=== PATIENT | female | born 1950 | race Caucasian/White ===

== ENCOUNTER 2023-12-17 22:13 | Inpatient (IN) | payer MEDICARE ==
[~2023-12-17] VITALS: Ht 167.6 cm; Wt 74.8 kg
[2023-12-17] MEDS ORDERED: CEPH500C2 PO (23:05)
[2023-12-18 00:04] LABS: BASOPHILS # (AUTO) 0.1 K/UL (0.0-0.2); BASOPHILS % (AUTO) 0.9 % (0.0-2.0); EOSINOPHILS # (AUTO) 0.2 K/uL (0.0-0.7); EOSINOPHILS % (AUTO) 2.3 % (0.0-7.0); HEMATOCRIT 35.8 % (31.2-41.9); HEMOGLOBIN 11.5 g/dL (10.9-14.3); LYMPHOCYTES # (AUTO) 1.7 K/uL (0.8-4.8); LYMPHOCYTES % (AUTO) 20.4 % (20.5-51.5); MEAN CORPUSCULAR HEMOGLOBIN 28.7 uug (24.7-32.8); MEAN CORPUSCULAR HGB CONC 32 g/dL (32.3-35.6); MEAN CORPUSCULAR VOLUME 89.1 fL (75.5-95.3); MONOCYTES # (AUTO) 0.9 K/uL (0.1-1.30); MONOCYTES % (AUTO) 10.7 % (0.0-11.0); NEUTROPHILS # (AUTO) 5.4 K/uL (1.8-8.9); NEUTROPHILS % (AUTO) 65.7 % (38.5-71.5); PLATELET COUNT (AUTO) 258 K/uL (179-408); RED BLOOD CELL COUNT(AUTO) 4.02 MIL/uL (3.63-4.92); RED CELL DISTRIBUTION WIDTH 13.4 % (12.3-17.7); WHITE BLOOD COUNT (AUTO) 8.3 K/uL (3.8-11.8)
[2023-12-18 00:05] LABS: DIFFERENTIAL COMMENT 1
[2023-12-18 00:18] LABS: CALCIUM 8.8 mg/dL (8.5-10.1); CARBON DIOXIDE 28 mmol/L (21-32); CHLORIDE 102 mmol/L (98-107); GLUCOSE 113 mg/dL (74-106); POTASSIUM 4.3 mmol/L (3.5-5.1); SODIUM SERUM 136 mmol/L (136-145); UREA NITROGEN, BLOOD 16 mg/dL (7-18)
[2023-12-18 00:31] LABS: ETHANOL < 3 MG/DL (0-10); THYROID STIMULATING HORMONE 3.178 mIU/mL (0.358-3.740)
[2023-12-18 00:32] LABS: ALANINE AMINOTRANSFERASE 21 U/L (14-59); ALBUMIN 2.3 g/dL (3.4-5.0); ALKALINE PHOSPHATASE 101 U/L (50-136); ASPARTATE AMINOTRANSFERASE 17 U/L (15-37); BILIRUBIN,DIRECT 0.1 mg/dL (0.0-0.2); BILIRUBIN,TOTAL 0.3 mg/dL (0.2-1.0); TOTAL PROTEIN, SERUM 6.3 g/dL (6.4-8.2)
[2023-12-18 00:33] LABS: ACETAMINOPHEN < 10.0 ug/mL (10-30)
[2023-12-18] MEDS ORDERED: TEMAZEPAM 7.5 MG CAPSULE PO PRN (04:45)
[2023-12-18] MEDS ORDERED: CLONAZEPAM 0.5 MG TABLET PO PRN (04:45)
[2023-12-18] MEDS ORDERED: MAG HYDROX/AL HYDROX/SIMETH 30 ML LIQUID UDC PO PRN (04:45)
[2023-12-18] MEDS ORDERED: MAGNESIUM HYDROXIDE 30 ML LIQUID UDC PO PRN (04:45)
[2023-12-18 05:06] VITALS: BP 107/66; TEMP 98; O2SAT 98
[2023-12-18 08:11] VITALS: BP 114/60; TEMP 97.8; O2SAT 97
[2023-12-18] MEDS: CEphaleXIN 500 MG CAPSULE PO SCH (12:28)
[2023-12-18] MEDS: ACETAMINOPHEN 325 MG TABLET PO PRN (12:29)
[2023-12-18 15:19] VITALS: BP 98/55; TEMP 98; O2SAT 96
[2023-12-18 20:13] VITALS: BP 110/56; TEMP 98.1; O2SAT 96
[2023-12-18] MEDS: risperiDONE 0.5 MG TABLET PO SCH (21:10)
[2023-12-19 07:45] VITALS: BP 108/60; TEMP 98.5; O2SAT 99
[2023-12-19 07:50] LABS: ALANINE AMINOTRANSFERASE 17 U/L (14-59); ALBUMIN 2.1 g/dL (3.4-5.0); ALKALINE PHOSPHATASE 91 U/L (50-136); ASPARTATE AMINOTRANSFERASE 12 U/L (15-37); BILIRUBIN,TOTAL 0.3 mg/dL (0.2-1.0); CALCIUM 8.7 mg/dL (8.5-10.1); CARBON DIOXIDE 28 mmol/L (21-32); CHLORIDE 105 mmol/L (98-107); CREATININE 0.7 mg/dL (0.6-1.3); GLUCOSE 94 mg/dL (74-106); SODIUM SERUM 139 mmol/L (136-145); TOTAL PROTEIN, SERUM 5.9 g/dL (6.4-8.2); UREA NITROGEN, BLOOD 16 mg/dL (7-18)
[2023-12-19 16:49] VITALS: BP 104/51; TEMP 98.4; O2SAT 99
[2023-12-19 20:00] VITALS: BP 106/52; TEMP 97.7; O2SAT 98
[2023-12-20 07:45] VITALS: BP 117/68; TEMP 98.2; O2SAT 98
[2023-12-20 17:05] VITALS: BP 117/86; TEMP 98.1; O2SAT 98
[2023-12-20 20:08] VITALS: BP 112/76; TEMP 98.1; O2SAT 96
[2023-12-21 08:23] VITALS: BP 142/87; TEMP 97.8; O2SAT 98
[2023-12-21 16:11] VITALS: BP 95/59; TEMP 97.9; O2SAT 98
[2023-12-21 19:44] VITALS: BP 112/56; TEMP 98; O2SAT 96
[2023-12-22 08:00] VITALS: BP 115/62; TEMP 98; O2SAT 98
[2023-12-22 15:27] VITALS: BP 94/51; TEMP 98; O2SAT 98
[2023-12-22 20:01] VITALS: BP 101/56; TEMP 97.9; O2SAT 96
[2023-12-23 09:38] VITALS: BP 101/60; TEMP 98.4; O2SAT 96
[2023-12-23 15:36] VITALS: BP 106/60; TEMP 98; O2SAT 97
[2023-12-23 20:00] VITALS: BP 94/53; TEMP 98.4; O2SAT 96
[2023-12-24 08:10] VITALS: BP 121/64; TEMP 98; O2SAT 99
[2023-12-24 15:44] VITALS: BP 102/57; TEMP 98.2; O2SAT 98
[2023-12-24 20:00] VITALS: BP 94/77; TEMP 97.9; O2SAT 98
[2023-12-25 07:56] VITALS: BP 135/83; TEMP 98; O2SAT 99
[2023-12-25 14:53] VITALS: BP 98/58; TEMP 98.2; O2SAT 98
[2023-12-25 20:16] VITALS: BP 96/57; TEMP 98; O2SAT 98
[2023-12-26 07:56] VITALS: BP 94/44; TEMP 98.3; O2SAT 98
[2023-12-26 16:20] VITALS: BP 92/51; TEMP 98; O2SAT 97
[2023-12-26 20:48] VITALS: BP 92/54; TEMP 98.2; O2SAT 100
[2023-12-27 07:59] VITALS: BP 115/64; TEMP 98; O2SAT 98
[2023-12-27 16:16] VITALS: BP 103/60; TEMP 98.1; O2SAT 98
[2023-12-27 20:06] VITALS: BP 118/56; TEMP 98.4; O2SAT 99
[2023-12-28 08:03] VITALS: BP 120/77; TEMP 98.1; O2SAT 98
[2023-12-28 16:24] VITALS: BP 118/70; TEMP 98; O2SAT 98
[2023-12-28 19:49] VITALS: BP 122/74; TEMP 98.1; O2SAT 96
[2023-12-28] MEDS: risperiDONE 0.5 MG TABLET PO SCH (20:37)
[2023-12-29 08:09] VITALS: BP 131/63; TEMP 98; O2SAT 100
[2023-12-29 16:01] VITALS: BP 120/61; TEMP 98; O2SAT 98
[2023-12-29 19:46] VITALS: BP 136/64; TEMP 98.1; O2SAT 99
[2023-12-30 07:55] VITALS: BP 90/52; TEMP 98; O2SAT 98
[2023-12-30 15:16] VITALS: BP 98/51; TEMP 98; O2SAT 98
[2023-12-30 19:50] VITALS: BP 99/51; TEMP 98.1; O2SAT 96
[2023-12-31 08:56] VITALS: BP 97/54; TEMP 98; O2SAT 99
[2023-12-31 15:16] VITALS: BP 90/55; TEMP 98; O2SAT 98
[2023-12-31 20:04] VITALS: BP 99/56; TEMP 98.1; O2SAT 96
[2024-01-01 07:30] VITALS: BP 114/72; TEMP 98.4; O2SAT 99
== END 2024-01-01 11:45 | DRG 885 ==
LOC: ER 22:16 → GPS 12-18 02:00
PROVIDERS: ADMIT Psychiatry & Neurology Psychiatry; ATTEND Nurse Practitioner Acute Care
DX: F29 Unspecified psychosis not due to a substance or known physiological condition (principal); Z59.02 Unsheltered homelessness; F03.911 Unspecified dementia, unspecified severity, with agitation; N39.0 Urinary tract infection, site not specified; E44.0 Moderate protein-calorie malnutrition; F03.93 Unspecified dementia, unspecified severity, with mood disturbance; Z86.16 Personal history of COVID-19; R26.2 Difficulty in walking, not elsewhere classified; R60.0 Localized edema; D63.8 Anemia in other chronic diseases classified elsewhere; Z86.711 Personal history of pulmonary embolism; Z68.26 Body mass index [BMI] 26.0-26.9, adult; E88.09 Other disorders of plasma-protein metabolism, not elsewhere classified; Z91.199 Patient's noncompliance with other medical treatment and regimen due to unspecified reason
CPT/HCPCS: 36415; 84443; 85025; G0480